=== PATIENT | female | born 1970 | race Caucasian/White ===

== ENCOUNTER 2016-07-14 20:37 | Emergency (ER) | payer BC ==
[~2016-07-14] VITALS: Ht 165.1 cm; Wt 73.6 kg
[~2016-07-14 20:37] MED LIST: CINN500T PO; PRM625 PO; ZNT/150 PO
[2016-07-14 20:39] VITALS: TEMP 36.6; Ht 165.1 cm; Wt 73.6 kg
[2016-07-14] MEDS ORDERED: SODIUM CHLORIDE 0.9% 1000ML 1,000 ML IV STA (20:53)
[2016-07-14] MEDS ORDERED: MoRPHine SULFATE 4 MG/ML 1 ML CARP\\VIAL IV STA (20:53)
[2016-07-14] MEDS ORDERED: SODIUM CHLORIDE 0.9% 1000ML 1,000 ML IV ONE (20:53)
[2016-07-14] MEDS ORDERED: ONDANSETRON INJ 2 MG/ML 2 ML VIAL IV STA (20:53)
[2016-07-14 21:18] LABS: MANUAL MICROSCOPIC REQUIRED? YES; REVIEW REQ? NO; SULFASALICYLIC ACID NEG (NEG); URINE APPEARANCE CLEAR (CLEAR); URINE COLOR ORANGE; URINE SPECIFIC GRAVITY 1.017 (1.000-1.030)
[2016-07-14 21:19] LABS: BASO % 0.3 %; BASO ABS # 0.03 K/uL (0-0.2); COMPLETE YES; EOS % 1.6 %; HEMATOCRIT 39.7 % (37-47); IG% 0.3 %; LYMPH % 16.2 %; LYMPH ABS # 1.67 K/uL (1.2-3.4); MEAN CELL VOLUME 89.4 fL (80-100); MEAN CORPUSCULAR HEMOGLOBIN 32.2 pg (25-34); MEAN PLATELET VOLUME 10.9 fL (7.4-10.4); MONO % 5.2 %; NEUT % 76.4 %; PLATELET COUNT 280 K/uL (130-400); RED BLOOD COUNT 4.44 M/uL (4.2-5.4); WHITE BLOOD COUNT 10.29 K/uL (4.8-10.8)
[2016-07-14 21:26] LABS: URINE BACTERIA 1+ (NEG)
[2016-07-14 21:34] LABS: BLOOD UREA NITROGEN 16 mg/dl (7-18); BUN/CREATININE RATIO 16.9 (10-20); CALCIUM 9.7 mg/dl (8.5-10.1); CARBON DIOXIDE 23 mmol/L (21-32); CHLORIDE 105 mmol/L (98-107); CREATININE 0.95 mg/dl (0.60-1.20); GLUCOSE 97 mg/dl (70-99); POTASSIUM 3.6 mmol/L (3.5-5.1); SODIUM 140 mmol/L (136-145)
[2016-07-14] MEDS ORDERED: SENN-61 PO (21:34)
[2016-07-14 21:37] LABS: ALKALINE PHOSPHATASE 119 U/L (45-117); ALT/SGPT 44 U/L (12-78); AST/SGOT 35 U/L (15-37)
--- NOTE | 2016-07-14 21:46 | DIAGNOSTIC IMAGING REPORT ---
CT SCAN OF THE ABDOMEN AND PELVIS WITHOUT IV CONTRAST CLINICAL HISTORY: Right flank pain. COMPARISON STUDY: MRI of the abdomen dated 02/11/2015. TECHNIQUE: CT scan of the abdomen and pelvis is performed from the lung bases to the proximal femora. Images are reviewed in the axial, sagittal, and coronal planes. IV contrast was not administered for this examination as per the referring clinician. Automated dose control exposure was utilized. CT DOSE: 933.35 mGy.cm FINDINGS: Lung bases: The heart is normal in size and without pericardial effusion. The lung bases are clear. There is a small hiatal hernia. Liver: The unenhanced liver is normal in size, contour, and attenuation. There is no intrahepatic biliary ductal dilatation. Gallbladder: Unremarkable. Spleen: Normal in size and attenuation. Pancreas: Unremarkable. Adrenal glands: Unremarkable. Kidneys: The unenhanced kidneys are normal in size and without hydronephrosis. There are no renal calculi identified. There is no evidence of contour deforming renal mass lesion. Abdominal vasculature: The abdominal aorta is normal in course and caliber. Bowel: The small bowel and colon are normal in course and caliber. There is moderate colonic fecal retention. The appendix is well-visualized and normal. Peritoneum: There is no intraperitoneal free air or abdominal ascites. There is a fat-containing umbilical hernia. A naval piercing is noted. Lymphadenopathy: None. Pelvic viscera: The bladder is normal in appearance. The uterus is surgically absent. No adnexal lesion is seen. Skeletal structures: No lytic or blastic lesions are seen. IMPRESSION: 1. There are no acute infectious or inflammatory findings in the abdomen or pelvis. 2. Moderate constipation. Electronically signed by: Steven Grider M.D. 07/14/2016 9:44 PM Dictated Date/Time: 07/14/2016 9:39 PM
[2016-07-14] MEDS ORDERED: NITR-5 PO (22:14)
[2016-07-14] MEDS ORDERED: OXYCODONE IR HOME PACK PO ONE (22:15)
[2016-07-14] MEDS ORDERED: MACROBID 100MG HOME PACK 1 EA VIAL PO ONE (22:15)
[2016-07-14 22:48] VITALS: BP 114/61; PULSE 82; O2SAT 96
--- NOTE | 2016-07-15 01:58 | EMERGENCY ROOM VISIT NOTE ---
History Report prepared by Neetu: Mary Ratliff Under the Supervision of: Dr. Alessio Webb M.D. First contact with patient: 20:44 Chief Complaint: FLANK PAIN Stated Complaint: ABD/LOWER BACK PAIN Nursing Triage Summary: pt ambulatory to triage with the c/o abd pains and right flank pain. History of Present Illness The patient is a 45 year old female who presents to the Emergency Room via family with complaints of worsening flank pain with onset one night ago. She rates her pain as a 9/10. One night ago, the patient developed right lower back pain. She notes that she often gets urinary tract infections, with pain in her back. She considered that this symptom was related to an UTI, however, she noticed some dissimilarities. With her usual UTIs, the patient is unable to urinate. She notes that she can still urinate. The patient notes that her flank pain radiates around to her abdomen. She has chills and nausea. The patient notes that sitting worsens her pain. She denies fevers, history of kidney stones , trauma, taking blood thinners, chest pain, shortness of breath, pain or swelling in her legs, urinary symptoms, chance of . Additionally, the patient recently took Pyridium, which she states is the reason her urine is pink in color. Source of History: patient, family Onset: one night ago Position: back Symptom Intensity: 9/10 Quality: other (flank pain) Timing: worsening Associated Symptoms: + abdominal pain, + chills, + nausea, No SOB, No chest pain, No fevers, No urinary symptoms Note: She further denies pain or swelling in her legs. Review of Systems See HPI for pertinent positives & negatives. A total of 10 systems reviewed and were otherwise negative. Past Medical & Surgical Medical Problems: (1) Abdominal bloating (2) Abnormal EKG (3) Abnormal EKG (4) Chest pain (5) Constipation (6) Constipation (7) ESOPHAGEAL REFLUX (8) Palpitations (9) UTI (urinary tract infection) Surgical Problems: (1) History of hysterectomy (2) Hx of bilateral salpingo-oophorectomy Old medical records were reviewed. Nurse's notes were reviewed and I agree with. Denies history of kidney stones or abdominal surgeries or diabetes Family History Heart disease SD (myocardial infarction) Social History Smoking Status: Never Smoker Alcohol Use: occasionally Marital Status: Housing Status: lives with family Occupation Status: unemployed Current/Historical Medications Scheduled Estrogens, Conjugated (Premarin), 0.625 MG PO DAILY Nitrofurantoin Monohyd Macrocr (Macrobid), 100 MG PO BID Scheduled PRN Ranitidine Hcl (Zantac), 150 MG PO BID PRN for Acid Reflux Senna (Senokot), 1 TAB PO DAILY PRN for Constipation Allergies Coded Allergies: BEE STING (Verified Allergy, Unknown, ., 07/14/16) Physical Exam Vital Signs Date Time Temp Pulse Resp B/P Pulse Ox O2 Delivery O2 Flow Rate FiO2 07/14/16 22:48 82 16 114/61 96 07/14/16 21:38 78 18 123/75 95 Room Air 07/14/16 20:39 36.6 86 18 119/91 96 Room Air Physical Exam General: Uncomfortable appearing middle aged female in no respiratory distress. HEENT: Normal cephalic atraumatic. Pupils are equal round and reactive to light. Sclerae anicteric. Extraocular movements are intact. Oropharynx is pink with moist mucous membranes. No swelling of the mouth lips or tongue. Neck: Supple with a midline trachea. No meningeal signs or stiffness, no JVD or bruits. No Stridor. Chest: Clear to auscultation bilaterally. No wheezes or rhonchi. No increased work of breathing. Heart: regular rate and rhythm. Abdomen: Soft nontender, nondistended without rebound guarding or rigidity. Extremities: No cyanosis clubbing or edema. No calf tenderness or assymetry Spine/Back. Non tender to palpation. No CVA tenderness Skin: Good turgor without rashes. Neurologic exam: Cranial nerves two through 12 are intact. Motor and sensation are intact and symmetrical throughout. Medical Decision & Procedures ER Provider Diagnostic Interpretation: CT results as stated below per my review and radiologist interpretation: CT SCAN OF THE ABDOMEN AND PELVIS WITHOUT IV CONTRAST CLINICAL HISTORY: Right flank pain. COMPARISON STUDY: MRI of the abdomen dated 02/11/2015. TECHNIQUE: CT scan of the abdomen and pelvis is performed from the lung bases to the proximal femora. Images are reviewed in the axial, sagittal, and coronal planes. IV contrast was not administered for this examination as per the referring clinician. Automated dose control exposure was utilized. CT DOSE: 933.35 mGy.cm FINDINGS: Lung bases: The heart is normal in size and without pericardial effusion. The lung bases are clear. There is a small hiatal hernia. Liver: The unenhanced liver is normal in size, contour, and attenuation. There is no intrahepatic biliary ductal dilatation. Gallbladder: Unremarkable. Spleen: Normal in size and attenuation. Pancreas: Unremarkable. Adrenal glands: Unremarkable. Kidneys: The unenhanced kidneys are normal in size and without hydronephrosis. There are no renal calculi identified. There is no evidence of contour deforming renal mass lesion. Abdominal vasculature: The abdominal aorta is normal in course and caliber. Bowel: The small bowel and colon are normal in course and caliber. There is moderate colonic fecal retention. The appendix is well-visualized and normal. Peritoneum: There is no intraperitoneal free air or abdominal ascites. There is a fat-containing umbilical hernia. A naval piercing is noted. Lymphadenopathy: None. Pelvic viscera: The bladder is normal in appearance. The uterus is surgically absent. No adnexal lesion is seen. Skeletal structures: No lytic or blastic lesions are seen. IMPRESSION: 1. There are no acute infectious or inflammatory findings in the abdomen or pelvis. 2. Moderate constipation. Electronically signed by: Steven Grider M.D. 07/14/2016 9:44 PM Dictated Date/Time: 07/14/2016 9:39 PM Laboratory Results 07/14/16 20:55 Red Blood Count 4.44, Mean Corpuscular Volume 89.4, Mean Corpuscular Hemoglobin 32.2, Mean Corpuscular Hemoglobin Concent 36.0, Mean Platelet Volume 10.9, Neutrophils (%) (Auto) 76.4, Lymphocytes (%) (Auto) 16.2, Monocytes (%) (Auto) 5.2, Eosinophils (%) (Auto) 1.6, Basophils (%) (Auto) 0.3, Neutrophils # (Auto) 7.87, Lymphocytes # (Auto) 1.67, Monocytes # (Auto) 0.53, Eosinophils # (Auto) 0.16, Basophils # (Auto) 0.03 07/14/16 20:55 Test 07/14/16 20:45 07/14/16 20:55 Urine Color ORANGE Urine Appearance CLEAR (CLEAR) Urine pH (4.5-7.5) Urine Specific Eunice 1.017 (1.000-1.030) Urine Protein (NEG) Urine Glucose (UA) (NEG) Urine Ketones (NEG) Urine Occult Blood (NEG) Urine Nitrite (NEG) Urine Bilirubin (NEG) Urine Urobilinogen (NEG) Urine Leukocyte Esterase (NEG) Urine RBC 10-30 /hpf (0-4) Urine WBC 10-30 /hpf (0-5) Urine Epithelial Cells 10-20 /lpf (0-5) Urine Bacteria 1+ (NEG) White Blood Count 10.29 K/uL (4.8-10.8) Red Blood Count 4.44 M/uL (4.2-5.4) Hemoglobin 14.3 g/dL (12.0-16.0) Hematocrit 39.7 % (37-47) Mean Corpuscular Volume 89.4 fL (80-100) Mean Corpuscular Hemoglobin 32.2 pg (25-34) Mean Corpuscular Hemoglobin Concent 36.0 g/dl (32-36) Platelet Count 280 K/uL (130-400) Mean Platelet Volume 10.9 fL (7.4-10.4) Neutrophils (%) (Auto) 76.4 % Lymphocytes (%) (Auto) 16.2 % Monocytes (%) (Auto) 5.2 % Eosinophils (%) (Auto) 1.6 % Basophils (%) (Auto) 0.3 % Neutrophils # (Auto) 7.87 K/uL (1.4-6.5) Lymphocytes # (Auto) 1.67 K/uL (1.2-3.4) Monocytes # (Auto) 0.53 K/uL (0.11-0.59) Eosinophils # (Auto) 0.16 K/uL (0-0.5) Basophils # (Auto) 0.03 K/uL (0-0.2) RDW Standard Deviation 40.5 fL (36.4-46.3) RDW Coefficient of Variation 12.4 % (11.5-14.5) Immature Granulocyte % (Auto) 0.3 % Immature Granulocyte # (Auto) 0.03 K/uL (0.00-0.02) Anion Gap 12.0 mmol/L (3-11) Est Creatinine Clear Calc Drug Dose 73.5 ml/min Estimated GFR () 82.7 Estimated GFR (Non- 71.3 BUN/Creatinine Ratio 16.9 (10-20) Calcium Level 9.7 mg/dl (8.5-10.1) Total Bilirubin 0.4 mg/dl (0.2-1) Direct Bilirubin < 0.1 mg/dl (0-0.2) Aspartate Amino Transf (AST/SGOT) 35 U/L (15-37) Alanine Aminotransferase (ALT/SGPT) 44 U/L (12-78) Alkaline Phosphatase 119 U/L (45-117) Total Protein 8.0 gm/dl (6.4-8.2) Albumin 4.1 gm/dl (3.4-5.0) Lipase 440 U/L (73-393) Laboratory studies as stated above per my review. Medications Administered Medications (Trade) Dose Ordered Sig/Pavel Route Start Time Stop Time Status Last Admin Dose Admin Sodium Chloride 1,000 ml @ 999 mls/hr Q1H1M STAT IV 07/14/16 20:53 07/14/16 21:53 DC 07/14/16 21:15 999 MLS/HR Sodium Chloride (Nss 1000ml) 1,000 ml @ 200 mls/hr Q5H ONCE IV 07/14/16 20:53 07/14/16 23:32 DC 07/14/16 21:15 200 MLS/HR Morphine Sulfate (MoRPHine SULFATE INJ) 4 mg NOW STAT IV 07/14/16 20:53 07/14/16 20:56 DC 07/14/16 21:15 4 MG Ondansetron HCl (Zofran Inj) 4 mg NOW STAT IV 07/14/16 20:53 07/14/16 20:56 DC 07/14/16 21:15 4 MG Nitrofurantoin (Macrobid Homepack 100MG) 1 homepack UD ONCE PO 07/14/16 22:15 07/14/16 22:16 DC 07/14/16 22:47 1 HOMEPACK Oxycodone HCl (Roxicodone Immediate Rel 5MG Home Pack) 1 homepack UD ONCE PO 07/14/16 22:15 07/14/16 22:16 DC 07/14/16 22:47 1 HOMEPACK ED Course 2048: Past medical records reviewed. The patient was evaluated in room C9, and a complete history and physical examination were performed. 2052: Zofran 4 mg IV, Morphine Sulfate 4 mg IV, Sodium Chloride 1000 ml @ 200 mls/hr IV, Sodium Chloride 1000 ml @ 999 mls/hr IV 2144: I reevaluated the patient; she is resting comfortably and we are awaiting the results of her CT scan. 2209: Upon reevaluation, the patient is feeling better. I discussed the results and treatment plan with the patient. She verbalized agreement of the treatment plan. The patient was discharged home. 5: Oxycodone HCl 1 homepack PO, Nitrofurantoin 1 homepack PO Medical Decision Differentials include, but are not limited to; UTI, pyelonephritis, kidney stone , appendicitis, electrolyte or metabolic abnormality. This patient comes in as described above she has urinary symptoms and right flank pain. She does get frequent UTIs. She has no history of kidney stone. She is nontoxic appearing she is afebrile. IV access established and she was hydrated with IV normal saline bolus and hourly rate of IV normal saline. She was given morphine 4 mg IV and Zofran 4 mg IV and was feeling much better. Her urine was difficult to interpret as she's been taking Pyridium but she does on microscopy have white cells and bacteria although epithelial cells as well. She has no nothing if again white count. She has no acute electolyte or metabolic abnormalities or anything to suggest liver, gallbladder, or pancreas disease. She has no CVA tenderness to suggest polynephritis. The pain is in her right lower flank and below the lungs. I did a CAT scan and she has no evidence of kidney stones or obstructive uropathy or any other findings. He has no evidence of appendicitis. I will treat her for a possible UTI and she was given a Macrobid home pack as well as a prescription Macrobid twice a day for 7 days. She also received a home pack of OxyIR that she can use one or 2 pills every 4-6 hours as needed. She should primarily use ibuprofen as she does suffer from chronic constipation. She was warned that the OxyIR could make her drowsy, do not take for drinking, driving, working. She was feeling better and will be discharged home with her son driving. She was encouraged to return if: she has increasing pain, worsening of symptoms, fever chills, any new problems concerns. She should follow with her doctor Sunday for recheck or return here over the weekend if symptoms worsen. Impression Primary Impression: Right flank pain Additional Impression: UTI (urinary tract infection) Scribe Attestation The scribe's documentation has been prepared under my direction and personally reviewed by me in its entirety. I confirm that the note above accurately reflects all work, treatment, procedures, and medical decision making performed by me. Departure Information Dispostion Home / Self-Care Prescriptions Nitrofurantoin Monohyd Macrocr (Macrobid) 100 Mg Cap 100 MG PO BID, #14 CAP Prov: Alessio Webb M.D. 07/14/16 Referrals Lenard Dipo M.D. (PCP) Forms HOME CARE DOCUMENTATION FORM, IMPORTANT VISIT INFORMATION Patient Instructions My [facility] Additional Instructions Rest. Drink plenty of fluids. Use Macrobid twice a day for 7 days- anabiotic May use OxyIR 5 mg, one or 2 pills every 4-6 hours as needed for pain. OxyIR may make you drowsy and do not take before drinking, driving, working Use ibuprofen 400 mg every 6 hours if needed Return if: Increasing pain, fever or chills, worsening of symptoms, any new problems or concerns. Problem Qualifiers Additional Impression: UTI (urinary tract infection) Urinary tract infection type: acute cystitis Hematuria presence: without hematuria Qualified Codes: N30.00 - Acute cystitis without hematuria
== END 2016-07-14 22:48 | disposition home or self-care (01) ==
LOC: C.EDB 20:38 → C.EDC 22:48
DX: N39.0 Urinary tract infection, site not specified (principal); R11.0 Nausea

== ENCOUNTER 2017-07-31 16:26 | Emergency (ER) | payer BC, OTHER ==
[~2017-07-31] VITALS: Ht 165.1 cm; Wt 71.0 kg
[~2017-07-31 16:26] MED LIST changes: -CINN500T PO; +SENN-61 PO
[2017-07-31 16:42] VITALS: TEMP 36.8; Ht 165.1 cm; Wt 71.0 kg
[2017-07-31] MEDS ORDERED: EPP3/2 IM (17:49)
[2017-07-31] MEDS ORDERED: PRM625 PO (17:49)
[2017-07-31 18:14] LABS: BASO % 0.4 %; BASO ABS # 0.02 K/uL (0-0.2); EOS % 1.9 %; EOS ABS # 0.11 K/uL (0-0.5); HEMOGLOBIN 13.6 g/dL (12.0-16.0); IG# 0.01 K/uL (0.00-0.02); LYMPH % 23.7 %; LYMPH ABS # 1.35 K/uL (1.2-3.4); MEAN CELL VOLUME 90.7 fL (80-100); MEAN CORPUSCULAR HEMOGLOBIN 31.6 pg (25-34); MEAN CORPUSCULAR HGB CONC 34.9 g/dl (32-36); MEAN PLATELET VOLUME 10.1 fL (7.4-10.4); MONO % 6.3 %; MONO ABS # 0.36 K/uL (0.11-0.59); NEUT % 67.5 %; NEUT ABS # 3.84 K/uL (1.4-6.5); PLATELET COUNT 225 K/uL (130-400); RED CELL DISTRIBUTION WIDTH CV 12.6 % (11.5-14.5); RED CELL DISTRIBUTION WIDTH SD 41.5 fL (36.4-46.3); WHITE BLOOD COUNT 5.69 K/uL (4.8-10.8)
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
[2017-07-31 18:31] LABS: ALBUMIN 3.7 gm/dl (3.4-5.0); ALT/SGPT 20 U/L (12-78); BLOOD UREA NITROGEN 12 mg/dl (7-18); CALCIUM 9.2 mg/dl (8.5-10.1); CARBON DIOXIDE 26 mmol/L (21-32); CREATININE 0.77 mg/dl (0.60-1.20); GLUCOSE 89 mg/dl (70-99); LIPASE 319 U/L (73-393); POTASSIUM 3.8 mmol/L (3.5-5.1); SODIUM 137 mmol/L (136-145)
[2017-07-31 18:34] LABS: ALKALINE PHOSPHATASE 90 U/L (45-117); AST/SGOT 19 U/L (15-37); TOTAL PROTEIN 7.6 gm/dl (6.4-8.2)
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
[2017-07-31 20:05] VITALS: BP 110/64; PULSE 84; O2SAT 98
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
== END 2017-07-31 20:07 | disposition home or self-care (01) ==
LOC: C.EDB 16:27 → C.EDC 20:07
DX: M25.561 Pain in right knee (principal); M43.6 Torticollis; V47.5XXA Car driver injured in collision with fixed or stationary object in traffic accident, initial encounter; Y92.488 Other paved roadways as the place of occurrence of the external cause; K21.9 Gastro-esophageal reflux disease without esophagitis; Z90.710 Acquired absence of both cervix and uterus; Z90.722 Acquired absence of ovaries, bilateral; Z87.891 Personal history of nicotine dependence; Z82.49 Family history of ischemic heart disease and other diseases of the circulatory system